=== PATIENT | male | born 1960 | race Caucasian/White ===

== ENCOUNTER 2017-03-06 13:11 | Emergency (ER) | payer OTHER ==
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
[2017-03-06 13:56] LABS: CHLORIDE,CL 98 mmol/L (101-111); SODIUM,NA 137 mmol/L (135-145)
[2017-03-06 13:57] LABS: ACETAMINOPHEN < 10.0
[2017-03-06 14:28] VITALS: BP 125/70
== END 2017-03-06 14:46 ==
LOC: DL.ED 13:11
DX: R46.89 Other symptoms and signs involving appearance and behavior (principal)
CPT/HCPCS: 36415; 80053; 80305; 81001; 82140; 82150; 83690; 83735; 85025; 99285; G0480; 99284

== ENCOUNTER 2017-09-10 17:40 | Emergency (ER) | payer OTHER ==
[2017-09-10] MEDS ORDERED: Haloperidol Lactate 5 MG/ML SDV IM ONE (17:53)
[2017-09-10 18:23] LABS: CHLORIDE,CL 105 mmol/L (101-111); SODIUM,NA 143 mmol/L (135-145)
[2017-09-10 18:30] LABS: ACETAMINOPHEN < 10
--- NOTE | 2017-09-10 18:51 | EDM.PDOCBH ---
ED HPI GENERAL MEDICAL PROBLEM - General Chief Complaint: Behavioral/Psych Stated Complaint: ETOH & ??. IN BY [facility] Time Seen by Provider: 09/10/17 17:50 Source of Information: Reports: Patient, EMS, EMS Notes Reviewed, Police, RN, RN Notes Reviewed History Limitations: Reports: Combative/Threatening, Intoxication, Uncooperative - History of Present Illness INITIAL COMMENTS - FREE TEXT/NARRATIVE: Pt presents to the ER per [facility] in handcuffs and escorted by Aquatic Director's department. Pt states he has not been drinking or taking any recreational drugs. Patient states he is supposed to be on medications but has not been taking them. Patient has been screaming "help me", "they are killing me", "I will kill you" repeatedly. EMS states he received a B52 enroute to the hospital. Onset: Today, Sudden - Related Data Allergies Allergy/AdvReac Type Severity Reaction Status Date / Time No Known Allergies Allergy Verified 09/10/17 18:00 Home Meds: Home Meds LORazepam 0.5 mg PO 03/06/17 [History] Social & Family History - Family History Family Medical History: Noncontributory - Tobacco Use Smoking Status *Q: Current Every Day Smoker Years of Tobacco use: 0 Packs/Tins Daily: 0 - Caffeine Use Caffeine Use: Reports: None - Recreational Drug Use Recreational Drug Use: Yes Drug Use in Last 12 Months: Yes Recreational Drug Type: Reports: Marijuana/Hashish Recreational Drug Use Frequency: Daily ED ROS GENERAL - Review of Systems Review Of Systems: ROS reveals no pertinent complaints other than HPI. ED EXAM, BEHAVIORAL HEALTH - Physical Exam Exam: See Below Exam Limited By: Combative/Threatening General Appearance: Alert, Anxious, Moderate Distress Eye Exam: Bilateral Eye: Normal Inspection Ears: Normal External Exam, Hearing Grossly Normal Nose: Normal Inspection Throat/Mouth: Normal Inspection, Normal Voice, No Airway Compromise. No: Normal Teeth (no upper teeth) Head: Atraumatic, Normocephalic Neck: Normal Inspection, Full Range of Motion Respiratory/Chest: No Respiratory Distress, Lungs Clear, Normal Breath Sounds Cardiovascular: Normal Peripheral Pulses, Regular Rate, Rhythm, No Edema GI/Abdominal: Normal Bowel Sounds, Soft, Non-Tender (Male) Exam: Deferred Rectal (Males) Exam: Deferred Back Exam: Normal Inspection, Full Range of Motion Extremities: Normal Inspection, Normal Range of Motion Neurological: Alert, Disoriented to Person, Disoriented to Place, Disoriented to Time Psychiatric: Restless, Agitated, Disoriented, Inattentive, Uncooperative, Flight of Ideas, Homicidal Thoughts, Threatening Behavior Skin Exam: Warm, Dry, Intact, Normal color, No rash COURSE, BEHAVIORAL HEALTH COMP - Course Vital Signs: Last Vital Signs Temp 98.7 F 09/10/17 17:46 Pulse 108 H 09/10/17 17:46 Resp 20 09/10/17 17:46 BP 147/87 H 09/10/17 17:46 Pulse Ox 98 09/10/17 17:46 Orders, Labs, Meds: Laboratory Tests 09/10/17 09/10/17 09/10/17 Range/Units 17:57 17:57 17:57 WBC 10.8 H (5.0-10.0) 10^3/uL RBC 5.37 (4.6-6.2) 10^6/uL Hgb 16.7 D (14.0-18.0) g/dL Hct 47.4 (40.0-54.0) % MCV 88.3 (80-100) fL MCH 31.1 (27.0-34.0) pg MCHC 35.2 H (33.0-35.0) g/dL Plt Count 241 (150-450) 10^3/uL Neut % (Auto) 33.0 L (42.2-75.2) % Lymph % (Auto) 59.1 H (20.5-50.1) % [place] % (Auto) 5.3 (2-8) % Eos % (Auto) 1.8 (1.0-3.0) % Baso % (Auto) 0.8 (0.0-1.0) % Sodium 143 (135-145) mmol/L Potassium 3.4 L (3.6-5.0) mmol/L Chloride 105 (101-111) mmol/L Carbon Dioxide 22.0 (21.0-31.0) mmol/L Anion Gap 19.4 BUN 4 L (7-18) mg/dL Creatinine 0.7 (0.6-1.3) mg/dL Est Cr Clr Drug Dosing TNP Estimated GFR (MDRD) > 60 BUN/Creatinine Ratio 5.71 Glucose 125 H (74-105) mg/dL Calcium 9.1 (8.4-10.2) mg/dl Magnesium 2.1 (1.8-2.5) mg/dL Total Bilirubin 0.8 (0.2-1.0) mg/dL AST 56 H (10-42) IU/L ALT 34 (10-60) IU/L Alkaline Phosphatase 80 (42-121) IU/L Total Protein 6.7 (6.7-8.2) g/dl Albumin 4.1 (3.2-5.5) g/dl Globulin 2.6 Albumin/Globulin Ratio 1.58 TSH, Ultra Sensitive 2.29 (0.45-5.33) uIu/mL Urine Color (YELLOW) Urine Appearance (CLEAR) Urine pH (5.0-9.0) Ur Specific [place] (1.005-1.030) Urine Protein (NEGATIVE) Urine Glucose (UA) (NEGATIVE) Urine Ketones (NEGATIVE) Urine Occult Blood (NEGATIVE) Urine Nitrite (NEGATIVE) Urine Bilirubin (NEGATIVE) Urine Urobilinogen (0.2-1.0) mg/dL Ur Leukocyte Esterase (NEGATIVE) Urine RBC /HPF Urine WBC (0-5/HPF) /HPF Ur Epithelial Cells /HPF Urine Bacteria (0-FEW/HPF) /HPF Urine Mucus /LPF Salicylates < 4 Urine Opiates Screen (NEGATIVE) Ur Oxycodone Screen (NEGATIVE) Urine Methadone Screen (NEGATIVE) Acetaminophen < 10 Ur Barbiturates Screen (NEGATIVE) U Tricyclic Antidepress (NEGATIVE) Ur Phencyclidine Scrn (NEGATIVE) Ur Amphetamine Screen (NEGATIVE) U Methamphetamines Scrn (NEGATIVE) Urine MDMA Screen (NEGATIVE) U Benzodiazepines Scrn (NEGATIVE) Urine Cocaine Screen (NEGATIVE) U Marijuana (THC) Screen (NEGATIVE) Ethyl Alcohol 278 mg/dL 09/10/17 09/10/17 Range/Units 18:00 18:00 WBC (5.0-10.0) 10^3/uL RBC (4.6-6.2) 10^6/uL Hgb (14.0-18.0) g/dL Hct (40.0-54.0) % MCV (80-100) fL MCH (27.0-34.0) pg MCHC (33.0-35.0) g/dL Plt Count (150-450) 10^3/uL Neut % (Auto) (42.2-75.2) % Lymph % (Auto) (20.5-50.1) % [place] % (Auto) (2-8) % Eos % (Auto) (1.0-3.0) % Baso % (Auto) (0.0-1.0) % Sodium (135-145) mmol/L Potassium (3.6-5.0) mmol/L Chloride (101-111) mmol/L Carbon Dioxide (21.0-31.0) mmol/L Anion Gap BUN (7-18) mg/dL Creatinine (0.6-1.3) mg/dL Est Cr Clr Drug Dosing Estimated GFR (MDRD) BUN/Creatinine Ratio Glucose (74-105) mg/dL Calcium (8.4-10.2) mg/dl Magnesium (1.8-2.5) mg/dL Total Bilirubin (0.2-1.0) mg/dL AST (10-42) IU/L ALT (10-60) IU/L Alkaline Phosphatase (42-121) IU/L Total Protein (6.7-8.2) g/dl Albumin (3.2-5.5) g/dl Globulin Albumin/Globulin Ratio TSH, Ultra Sensitive (0.45-5.33) uIu/mL Urine Color Yellow (YELLOW) Urine Appearance Clear (CLEAR) Urine pH 7.0 (5.0-9.0) Ur Specific [place] 1.010 (1.005-1.030) Urine Protein Negative (NEGATIVE) Urine Glucose (UA) Negative (NEGATIVE) Urine Ketones Negative (NEGATIVE) Urine Occult Blood Trace-lysed H (NEGATIVE) Urine Nitrite Negative (NEGATIVE) Urine Bilirubin Negative (NEGATIVE) Urine Urobilinogen 0.2 (0.2-1.0) mg/dL Ur Leukocyte Esterase Negative (NEGATIVE) Urine RBC 0-5 /HPF Urine WBC 0-5 (0-5/HPF) /HPF Ur Epithelial Cells Rare /HPF Urine Bacteria Rare (0-FEW/HPF) /HPF Urine Mucus Rare /LPF Salicylates Urine Opiates Screen Negative (NEGATIVE) Ur Oxycodone Screen Negative (NEGATIVE) Urine Methadone Screen Negative (NEGATIVE) Acetaminophen Ur Barbiturates Screen Negative (NEGATIVE) U Tricyclic Antidepress Negative (NEGATIVE) Ur Phencyclidine Scrn Negative (NEGATIVE) Ur Amphetamine Screen Negative (NEGATIVE) U Methamphetamines Scrn Negative (NEGATIVE) Urine MDMA Screen Negative (NEGATIVE) U Benzodiazepines Scrn Negative (NEGATIVE) Urine Cocaine Screen Negative (NEGATIVE) U Marijuana (THC) Screen Positive H (NEGATIVE) Ethyl Alcohol mg/dL Medications Discontinued Medications Generic Name Dose Route Start Last Admin Trade Name Freq PRN Reason Stop Dose Admin Haloperidol Lactate 5 mg 09/10/17 17:53 09/10/17 18:14 Haldol IM 09/10/17 17:54 5 mg ONETIME ONE Administration Re-Assessment/Re-Exam: Ruiz Arriola NP at the [facility] has accepted care for the patient. The patient will be transferred with [facility]'s Department. Departure - Departure Time of Disposition: 19:15 Disposition: DC/Tfer to Psych Hosp/Unit 65 Condition: Fair, Serious Clinical Impression: Alcohol abuse, Threatening to others, Psychotic episode - Discharge Information Forms: ED Department Discharge, Interfacility Transfer [place]
[2017-09-10] MEDS ORDERED: LORazepam 2 MG/ML Syringe IM ONE (19:25)
[2017-09-10 19:50] VITALS: BP 121/78
== END 2017-09-10 20:10 ==
LOC: DL.ED 17:40
DX: F10.129 Alcohol abuse with intoxication, unspecified (principal); F23 Brief psychotic disorder; R45.6 Violent behavior; R45.851 Suicidal ideations; F17.200 Nicotine dependence, unspecified, uncomplicated; Y90.8 Blood alcohol level of 240 mg/100 ml or more
CPT/HCPCS: 36415; 80053; 80305; 81001; 83735; 84443; 85025; 96372; 99284; G0480; J1630; J2060; 99283

== ENCOUNTER 2021-01-25 15:44 | Emergency (ER) | payer OTHER, MEDICAID ==
[2021-01-25 15:50] VITALS: BP 143/97; PULSE 98
[2021-01-25] MEDS ORDERED: Silver Sulfadiazine 1% Crm 50 GM Tube TOP ONE (16:11)
[2021-01-25 16:34] LABS: CHLORIDE,CL 101 mmol/L (98-107); SODIUM,NA 141 mmol/L (136-145)
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
== END 2021-01-25 17:10 ==
LOC: DL.ED 15:44
DX: F10.129 Alcohol abuse with intoxication, unspecified (principal); R45.850 Homicidal ideations; Y90.8 Blood alcohol level of 240 mg/100 ml or more
CPT/HCPCS: 36415; 70450; 80053; 80307; 85025; 99284; A9270

== ENCOUNTER 2023-07-10 18:11 | Emergency (ER) | payer OTHER ==
[2023-07-10 18:26] VITALS: BP 137/96; PULSE 105
== END 2023-07-10 19:11 ==
LOC: DL.ED 18:11
DX: I10 Essential (primary) hypertension; F17.210 Nicotine dependence, cigarettes, uncomplicated; Z79.899 Other long term (current) drug therapy
CPT/HCPCS: 99282; 99283

== ENCOUNTER 2024-04-26 11:28 | Emergency (ER) | payer SELFPAY ==
[2024-04-26 12:00] VITALS: BP 139/94; PULSE 73
== END 2024-04-26 13:51 | disposition left against medical advice (07) ==
LOC: DL.ED 11:28
DX: Z53.21 Procedure and treatment not carried out due to patient leaving prior to being seen by health care provider (principal)

== ENCOUNTER 2025-02-12 21:44 | Emergency (ER) | payer MEDICAID, MEDICARE, OTHER ==
[2025-02-12] MEDS: GI Cocktail Oral Solution 30 ML PO ONE (21:47)
[2025-02-12 21:53] LABS: BASOPHILS PERCENT AUTO 0.9 % (0.0-1.0); EOSINOPHILS PERCENT AUTO 2.3 % (1.0-3.0); HEMATOCRIT 42.8 % (40.0-54.0); HEMOGLOBIN 14.1 g/dL (14.0-18.0); LYMPHOCYTES PERCENT AUTO 22.8 % (20.5-50.1); MEAN CORPUSCULAR HEMOGLOBIN 29.6 pg (27.0-34.0); MEAN CORPUSCULAR HGB CONC 32.9 g/dL (33.0-35.0); MEAN CORPUSCULAR VOLUME 89.9 fL (80-100); MONOCYTES PERCENT AUTO 10.6 % (2-8); NEUTROPHILS PERCENT AUTO 63.4 % (42.2-75.2); PLATELET COUNT,PLT 175 10^3/uL (150-450); RED BLOOD CELL COUNT 4.76 10^6/uL (4.6-6.2); WHITE BLOOD CELL COUNT,WBC 7.7 10^3/uL (5.0-10.0)
[2025-02-12 22:12] LABS: A/G RATIO 1.3; ALBUMIN 3.9 g/dL (3.4-5.0); BILIRUBIN TOTAL 0.2 mg/dL (0.2-1.0); BUN/CREATININE RATIO 12.5 (No establ ref range); CALCIUM 9.1 mg/dL (8.5-10.1); CREATININE 1.12 mg/dL (0.70-1.30); EST CRCL DRUG DOSING (CG) 71.21 mL/min
[2025-02-12 22:18] LABS: ANION GAP 9.2 mEq/L (7-13); POTASSIUM,K 5.2 mmol/L (3.5-5.1)
[2025-02-12] MEDS: Lisinopril 10 MG Tab PO ONE (22:57)
[2025-02-12 22:59] VITALS: BP 167/97
[2025-02-12 23:06] VITALS: PULSE 57
== END 2025-02-12 23:00 | disposition home or self-care (01) ==
LOC: DL.ED 21:44
DX: K21.9 Gastro-esophageal reflux disease without esophagitis (principal); I16.0 Hypertensive urgency; Z79.899 Other long term (current) drug therapy
CPT/HCPCS: 36415; 71045; 80053; 83690; 84484; 85025; 93005; 93010; 99284; 99285; A9270